=== PATIENT | male | born 1975 | race African-American/Black ===

== ENCOUNTER 2020-06-02 17:51 | Emergency (ER) | payer MEDICAID ==
[~2020-06-02] VITALS: Ht 167.6 cm; Wt 91.0 kg
[2020-06-02] MEDS ORDERED: TETANUS, DIPHTHERIA, PERTUSSIS VAC/PF 0.5ML (>7YR OLD) IM ONE (18:45)
[2020-06-02 19:30] VITALS: BP 145/91
[2020-06-02] MEDS ORDERED: BACITRACIN 15GM TUBE TOP ONE (19:45)
== END 2020-06-02 20:10 | disposition home or self-care (01) ==
LOC: ER 17:51
DX: S01.81XA Laceration without foreign body of other part of head, initial encounter (principal); V29.88XA Motorcycle rider (driver) (passenger) injured in other specified transport accidents, initial encounter; Y93.55 Activity, bike riding; Y92.89 Other specified places as the place of occurrence of the external cause; Y99.8 Other external cause status
CPT/HCPCS: 12011; 90471; 90715; 99283

== ENCOUNTER 2020-06-07 10:07 | Emergency (ER) | payer MEDICAID ==
[~2020-06-07] VITALS: Ht 167.6 cm; Wt 93.0 kg
[2020-06-07 10:16] VITALS: BP 173/114
== END 2020-06-07 11:10 | disposition left against medical advice (07) ==
LOC: ER 10:12
DX: Z53.21 Procedure and treatment not carried out due to patient leaving prior to being seen by health care provider (principal)